=== PATIENT | female | born 1985 | race Caucasian/White ===

== ENCOUNTER 2022-04-07 11:15 | Emergency (ER) | payer BC, SELFPAY ==
[2022-04-07 11:28] VITALS: BP 134/64; PULSE 76; RESP 16; TEMP 36.9; O2SAT 100
--- NOTE | 2022-04-07 11:44 | ED.URI ---
HPI - URI/Sore Throat General Chief Complaint: Nausea/Vomiting/Diarrhea Stated Complaint: Dizziness,Nausea Time Seen by Provider: 04/07/22 11:45 Source: patient and RN notes reviewed Mode of arrival: ambulatory Limitations: no limitations History of Present Illness HPI Narrative: 36-year-old female presents to the [facility] with complaints dizziness this morning. Has greatly improved since this morning. Has had nausea without vomiting. Denies fevers, chest pain, abdominal pain. Denies any other symptoms. Requesting a work note. Related Data Allergies Allergy/AdvReac Type Severity Reaction Status Date / Time No Known Allergies Allergy Verified 04/07/22 11:51 Review of Systems Review of Systems: All systems reviewed & are unremarkable except as noted in HPI and below Constitutional: Constitutional: Reports no additional constitutional complaints, Denies chills and Denies fever(s) Eyes: Eyes: Reports no additional eye complaints ENT: Reports as per HPI Cardiovascular: Cardiovascular: Reports no additional cardiovascular complaints Respiratory: Respiratory: Reports no additional respiratory complaints Gastrointestinal: Gastrointestinal: Reports no additional gastrointestinal complaints Musculoskeletal: Musculoskeletal: Reports no additional musculoskeletal complaints Integumentary/Breasts: Skin/Breast: Reports system reviewed and no additional complaints, except as docu Neurologic: Reports as per HPI, Reports vertigo, Reports dizziness, Denies syncope, Denies headache(s), Denies focal weakness, Denies numbness and Denies weakness Psychiatric: Psychiatric: Reports no additional psychiatric complaints Allergic/Immunologic: Allergic/Immunologic: Reports no additional allergic/immunologic complaints [facility] Family History Family History (Updated 09/18/16 @ 23:56 by DOCTOR UNKNOWN) Grandparent Family history of lung cancer, Onset Age: 62 Social History Social History Alcohol intake: never Comments At the time of my signature, I reviewed and agree with the nursing past medical, surgical, social, and family history. There is no relevant family history pertinent to the patient complaint. Exam Const: General: healthy appearing, no acute distress, alert and well nourished Nutritional Appearance: well nourished Orientation/consciousness: patient oriented x3 Limitations: no limitations HENMT: Head: normal to inspection Ears: external ears normal, EAC's normal and TM abnormal bulging on the left and with fluid behind the TM on the left Face/Nose/Sinus: Normal external nose present and Normal nares present Face and sinus: normal facial exam Mouth: Yes Normal oral and palatal mucosa present, Yes lip normal and Yes moist mucous membranes Throat: posterior oropharynx normal and uvula midline Eyes: General: appearance normal, both eyes and all related structures Conjunctivae: conjunctivae normal Pupils: Equal, round and reactive pupils present Neck: Neck: normal visual inspection, no lymphadenopathy and no meningeal signs Chest: Chest palpation & inspection: normal inspection of the chest Resp: Effort & Inspection: normal respiratory effort and no use of accessory muscles Auscultation: clear to auscultation bilaterally, no crackles, no rales, no rhonchi and no wheezes Cardio: Rate: regular rate Rhythm: regular rhythm Skin: General skin exam: normal color Rashes: no rashes Wounds: no wounds Neuro: General: patient oriented x3, moves all extremities, no meningeal signs and no focal motor deficits Cranial nerves: Yes Equal, round and reactive pupils present Speech: normal speech Gait exam (Neuro): Normal gait present Extrem: General: normal to inspection, full ROM and capillary refill normal Psych: Appearance: grossly normal and well kempt Mental Status: mental status grossly normal Affect: normal affect Attitude: cooperative Thought content: Yes Normal thought content present Course
[2022-04-07 11:52] LABS: Glucose Point of Care 116 mg/dl (65-105)
== END 2022-04-07 12:00 | disposition home or self-care (01) ==
PROVIDERS: Emergency Provider Nurse Practitioner; PCP Internal Medicine
DX: R42 Dizziness and giddiness (principal); H65.02 Acute serous otitis media, left ear; E11.9 Type 2 diabetes mellitus without complications; Z86.16 Personal history of COVID-19
CPT/HCPCS: 82948; 99213; G0463

== ENCOUNTER 2022-05-04 10:29 | Emergency (ER) | payer BC, SELFPAY ==
[2022-05-04 11:42] VITALS: BP 139/70; PULSE 79; RESP 18; TEMP 36.6; O2SAT 100
--- NOTE | 2022-05-04 12:13 | ED.UPPEXIN ---
HPI - Extremity Injury (Upper) General Chief Complaint: Extremity Injury, Upper Stated Complaint: lt hand pain Time Seen by Provider: 05/04/22 12:14 Source: patient Mode of arrival: ambulatory Limitations: no limitations History of Present Illness HPI narrative: 36-year-old female presenting for complaint of left middle and ring finger pain over the last 3 days. Denies injury. Endorses fingers get stuck in the morning and she has to manually extend her fingers. She endorses occasional numb sensation to the two fingers. She is able to flex and extend but endorses pressure at the knuckle (MCP). Denies injury. 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 Not taking anything for symptoms. Related Data Allergies Allergy/AdvReac Type Severity Reaction Status Date / Time tomato Allergy Hives Verified 05/04/22 11:39 Review of Systems Review of Systems: ROS per HPI All systems reviewed & are unremarkable except as noted in HPI and below PMFSH Family History Family History Grandparent Family history of lung cancer, Onset Age: 62 Social History Social History Alcohol intake: never Comments At time of signature, I have reviewed and agree with nursing past medical, surgical, social and family history unless otherwise noted. Please see nursing chart for further information. There is no relevant family history pertinent to the presenting complaint Exam Narrative: GENERAL: Well-appearing CHEST: Speaks in full sentences. No respiratory distress. HEART: Regular rate and rhythm. Normal and equal peripheral pulses. EXTREMITIES: Left hand has normal strength and sensation, normal range of motion. Fingers are flexing and extending without difficulty, she endorses pressure sensation to MCP. No edema or ecchymosis, No point tenderness. No open wounds or obvious deformity; pulse palpable and equal bilaterally, skin warm, dry, pink. Capillary refill less than 3 seconds. SKIN: Warm, dry, no rash. NEURO: Alert and oriented x3. PSYCH: Normal mood and affect Course Course Emergency Course: Patient is aware of diagnosis, understands and agrees to treatment plan. Anticipatory guidance given. Patient agrees to follow-up as directed and is aware of reasons to seek care at the emergency department. Portions of this record may have been created with voice recognition software Level of Care: Express Care Visit Vital Signs Vital signs: Vital Signs Temperature 97.9 F 05/04/22 11:42 Pulse Rate 79 05/04/22 11:42 Respiratory Rate 18 05/04/22 11:42 Blood Pressure 139/70 05/04/22 11:42 Pulse Oximetry 100 05/04/22 11:42 Oxygen Delivery Room Air 05/04/22 11:42 Temperature 97.9 F 05/04/22 11:42 Pulse Rate 79 05/04/22 11:42 Respiratory Rate 18 05/04/22 11:42 Blood Pressure 139/70 05/04/22 11:42 Pulse Oximetry 100 05/04/22 11:42 Oxygen Delivery Room Air 05/04/22 11:42 Reviewed MDM - Extremity Injury (Upper) MDM Narrative Medical decision making narrative: Advised supportive measures and signs/symptoms to go to the ER. Pt is appropriate for outpt treatment and f/u with her established hand specialist. Differential Diagnosis Differential diagnosis: Likely other (tenosynovitis, arthritis, finger sprain/strain) Discharge Plan Discharge Clinical Impression: Metacarpophalangeal joint pain of left hand Patient Disposition: Home, Self-Care Condition: Stable Instructions: Trigger Finger (ED) Additional Instructions: Recommend 2-finger splint for trigger finger alternate Tylenol and ibuprofen as needed for pain Aspercreme, icy Hot or Biofreeze as needed to the joint recommend hand exercises with silly putty, play-dough or stress ball Use rolled up wash cloth in hand while sleeping muscle relaxer bacl
== END 2022-05-04 12:40 | disposition home or self-care (01) ==
PROVIDERS: Emergency Provider Nurse Practitioner Family; PCP Internal Medicine
DX: M25.542 Pain in joints of left hand (principal); E11.9 Type 2 diabetes mellitus without complications; Z86.16 Personal history of COVID-19
CPT/HCPCS: 99213; G0463

== ENCOUNTER 2023-04-16 11:16 | Emergency (ER) | payer BC, SELFPAY ==
[2023-04-16 11:38] VITALS: BP 134/73; PULSE 96; RESP 16; TEMP 37.2; O2SAT 99
--- NOTE | 2023-04-16 11:51 | ED.EXTPRO ---
HPI - Extremity Problem General Chief complaint: Unspecified Stated complaint: finger injury left hand Time Seen by Provider: 04/16/23 11:44 Source: patient and RN notes reviewed Mode of arrival: ambulatory Limitations: no limitations History of Present Illness HPI Narrative: Patient presents today complaining of a painful bump to her left 3rd finger x yesterday. She has been using ibuprofen and ice and currently rates her pain 4/10. She does report some tingling to the tip of the finger as well. Denies any injury or trauma. States it is difficult to fully extend or flex her finger. Related Data Home Medications Medication Instructions Recorded Confirmed amoxicillin 500 mg tablet 500 mg PO DAILY 04/16/23 04/16/23 Allergies Allergy/AdvReac Type Severity Reaction Status Date / Time tomato Allergy Hives Verified 04/16/23 11:32 Review of Systems Review of Systems: CONSTITUTIONAL: Denies body aches, fever, chills, or sweats. EYES: Denies visual changes, redness, or discharge. ENT: Denies rhinorrhea, congestion, sore throat, or otalgia. CARDIOVASCULAR: Denies chest pain, palpitations, or edema. RESPIRATORY: Denies cough or dyspnea. GASTROINTESTINAL: Denies abdominal pain, nausea, vomiting, or diarrhea. GENITOURINARY: Denies dysuria or hematuria. SKIN: Denies rash, itching, or wounds. MUSCULOSKELETAL: Denies back pain, or myalgia.+ left 3rd finger bump and pain NEUROLOGIC: Denies headache, numbness, tingling, or weakness. PSYCH: Denies depression or anxiety. [facility] Family History Family History Grandparent Family history of lung cancer, Onset Age: 62 Social History Social History (Reviewed 04/16/23 @ 11:53 by Namita Nash, [facility] [place], ) Alcohol intake: never Comments At time of signature, I have reviewed and agree with nursing past medical, surgical, social and family history unless otherwise noted. Please see nursing chart for further information. There is no relevant family history pertinent to the presenting complaint Exam Narrative: GENERAL: Well-appearing, well-nourished, and in no acute distress. HEAD: Normocephalic, atraumatic. EYES: EOMI. No redness or drainage. Conjunctivae normal. ENT: Mucous membranes pink and moist. NECK: Normal AROM. CHEST: No respiratory distress. EXTREMITIES: Left 3rd finger: Nodule to a palmar aspect of the proximal phalanx. Tender to palpation. Unable to fully extend or flex the finger. Distal sensation intact. Capillary refill normal. SKIN: Warm, dry, no rash. Capillary refill normal. Normal skin turgor. NEURO: No focal deficits. Alert and oriented x3. Gait steady. PSYCH: Normal affect. No signs of depression or anxiety. Course Course Level of Care: Express Care Visit Vital Signs Vital signs: Vital Signs Temperature 98.9 F 04/16/23 11:38 Pulse Rate 96 04/16/23 11:38 Respiratory Rate 16 04/16/23 11:38 Blood Pressure 134/73 04/16/23 11:38 Pulse Oximetry 99 04/16/23 11:38 Oxygen Delivery Room Air 04/16/23 11:38 Temperature 98.9 F 04/16/23 11:38 Pulse Rate 96 04/16/23 11:38 Respiratory Rate 16 04/16/23 11:38 Blood Pressure 134/73 04/16/23 11:38 Pulse Oximetry 99 04/16/23 11:38 Oxygen Delivery Room Air 04/16/23 11:38 Reviewed MDM - Extremity (Nontraumatic) MDM Narrative Medical decision making narrative: It is recommended that patient follow-up with a hand specialist for further evaluation. Contact info given. No testing or prescription medications indicated at this time. Anticipatory guidance given. Differential Diagnosis Differential diagnosis: Likely other (Trigger finger, dupuytren's contracture, calcification) Critical Care Time Critical Care Time Critical Care Time: No Discharge Plan Discharge Clinical Impression: Finger pain, left Patient Disposition: Home, Self-Care Condition: Stable Instructi
== END 2023-04-16 12:06 | disposition home or self-care (01) ==
PROVIDERS: Emergency Provider Nurse Practitioner; PCP Internal Medicine
DX: M79.645 Pain in left finger(s) (principal); Z86.16 Personal history of COVID-19; E11.9 Type 2 diabetes mellitus without complications
CPT/HCPCS: 99212; G0463

== ENCOUNTER 2023-09-04 16:47 | Emergency (ER) | payer SELFPAY ==
[2023-09-04 17:17] VITALS: BP 128/79; PULSE 88; RESP 16; TEMP 37.1; O2SAT 99
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
== END 2023-09-04 17:55 | disposition home or self-care (01) ==
PROVIDERS: Emergency Provider Nurse Practitioner Family; PCP Internal Medicine
DX: M77.8 Other enthesopathies, not elsewhere classified (principal); R22.31 Localized swelling, mass and lump, right upper limb
CPT/HCPCS: 99213; G0463

== ENCOUNTER 2024-09-18 16:51 | Emergency (ER) | payer OTHER, SELFPAY ==
--- NOTE | ~2024-09-18 | XR_ITS ---
HISTORY: tib fib injury/pain/bruising medialrt tib fib COMPARISON: None TECHNIQUE: 2 views of the right lower leg FINDINGS: No acute or subacute fracture. Joint spaces are preserved and alignment is maintained. Soft tissues are unremarkable without radiopaque foreign body or significant calcification. Age-appropriate mineralization. IMPRESSION: No acute fracture. Reviewed, dictated and finalized at location A. IMPRESSION: No acute fracture.
--- NOTE | ~2024-09-18 | XR_ITS ---
HISTORY: pain rt knee pain, fall COMPARISON: 06/28/2005 TECHNIQUE: 4 views of the right knee were performed FINDINGS: No acute or subacute fracture, erosion, lytic or sclerotic lesion. Medial tibiofemoral joint space narrowing is identified. No suprapatellar joint effusion is identified. The infrapatellar joint space is clear. IMPRESSION: No acute fracture, as detailed above. Reviewed, dictated and finalized at location A.
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
[2024-09-18 17:00] VITALS: BP 133/71; PULSE 98; RESP 16; TEMP 36.3; O2SAT 100
== END 2024-09-18 17:39 | disposition home or self-care (01) ==
PROVIDERS: Emergency Provider Nurse Practitioner Family; PCP Internal Medicine
DX: S80.11XA Contusion of right lower leg, initial encounter (principal); W17.89XA Other fall from one level to another, initial encounter; E11.9 Type 2 diabetes mellitus without complications; Z86.16 Personal history of COVID-19
CPT/HCPCS: 73564; 73590; 99214; G0463